=== PATIENT | male | born 1955 | race Caucasian/White ===

== ENCOUNTER 2024-10-18 18:34 | Emergency (ER) | payer SELFPAY ==
[~2024-10-18] VITALS: Ht 167.6 cm; Wt 82.0 kg
[2024-10-18 18:37] VITALS: BP 146/91; PULSE 109; RESP 16; TEMP 98; O2SAT 100
[2024-10-18] MEDS ORDERED: SODIUM CHLORIDE 0.9% 1,000 ML IV ONE (19:00)
== END 2024-10-18 19:27 | disposition left against medical advice (07) ==
LOC: ER 18:34
DX: E11.65 Type 2 diabetes mellitus with hyperglycemia (principal); F10.29 Alcohol dependence with unspecified alcohol-induced disorder; Y90.9 Presence of alcohol in blood, level not specified; V89.2XXA Person injured in unspecified motor-vehicle accident, traffic, initial encounter; Y93.89 Activity, other specified; Y92.89 Other specified places as the place of occurrence of the external cause; Y99.8 Other external cause status
CPT/HCPCS: 99283; 93005; J7030